=== PATIENT | female | born 1960 | race Caucasian/White ===

== ENCOUNTER 2016-11-03 07:26 | Emergency (ER) | payer OTHER ==
--- NOTE | 2016-11-03 08:33 | RADIOLOGY REPORT (SQ) ---
EXAM DESCRIPTION: FOOT RIGHT COMPLETE COMPLETED DATE/TIME: 11/03/2016 8:09 am REASON FOR STUDY: dropped sheet of plywood on top of foot COMPARISON: None. NUMBER OF VIEWS: Three views. TECHNIQUE: AP, lateral and oblique radiographic images acquired of the right foot. LIMITATIONS: None. FINDINGS: MINERALIZATION: Normal. BONES: No acute fracture or dislocation. No worrisome bone lesions. Mild hallux valgus. JOINTS: No effusions. SOFT TISSUES: Mild soft tissue swelling over the forefoot dorsum. No radiopaque foreign body. OTHER: No other significant finding. IMPRESSION: No acute fracture or dislocation identified. Mild soft tissue swelling over the dorsum of the forefoot. TECHNICAL DOCUMENTATION: JOB ID: [id number] [employer]- All Rights Reserved
--- NOTE | 2016-11-03 09:00 | ER Document Report ---
ED General - General Chief Complaint: Foot Injury Stated Complaint: FOOT INJURY Time Seen by Provider: 11/03/16 08:01 Mode of Arrival: Ambulatory Information source: Patient Notes: 36-year-old female presents with complaints of right foot pain after a piece of wood fell on it yesterday. Patient denies any other injuries patient is able to ambulate TRAVEL OUTSIDE OF THE [place] IN LAST 30 DAYS: No - HPI Onset: Yesterday Onset/Duration: Sudden Quality of pain: Achy Severity: Mild Pain Level: 1 Associated symptoms: Body/muscle aches Exacerbated by: Movement Relieved by: Denies Similar symptoms previously: No Recently seen / treated by doctor: No - Related Data Allergies/Adverse Reactions: ampicillin [Ampicillin] Allergy (Unknown, Verified 11/03/16 07:26) codeine [Codeine] Allergy (Unknown, Verified 11/03/16 07:26) Past Medical History - Social History Smoking Status: Never Smoker Cigarette use (# per day): No Chew tobacco use (# tins/day): No Smoking Education Provided: No Family History: CAD - Father at age 45, [place] at 65, Hyperlipidemia, Hypertension, Other - Migraine Patient has suicidal ideation: No Patient has homicidal ideation: No Neurological Medical History: Reports: Hx Migraine Renal/ Medical History: Reports: Hx Ectopic , Hx Ovarian Cysts. Denies: Hx Peritoneal Dialysis Past Surgical History: Reports: Hx Hysterectomy, Hx Orthopedic Surgery - knee, Hx Tubal Ligation, Hx Urinary Tract Surgery - Bladder sling - Immunizations Immunizations up to date: Yes Hx Diphtheria, Pertussis, Tetanus Vaccination: Yes Review of Systems - Review of Systems Notes: REVIEW OF SYSTEMS: CONSTITUTIONAL : Denies fever, chills, or sweats. Denies recent illness. EENT: Denies eye, ear, throat, or mouth pain or symptoms. Denies nasal or sinus congestion or discharge. Denies throat, tongue, or mouth swelling or difficulty swallowing. CARDIOVASCULAR: Denies chest pain. Denies palpitations or racing or irregular heart beat. Denies ankle edema. RESPIRATORY: Denies cough, cold, or chest congestion. Denies shortness of breath, difficulty breathing, or wheezing. GASTROINTESTINAL: Denies abdominal pain or distention. Denies nausea, vomiting , or diarrhea. Denies blood in vomitus, stools, or per rectum. Denies black, tarry stools. Denies constipation. GENITOURINARY: Denies difficulty urinating, painful urination, burning, frequency, blood in urine, or discharge. FEMALE GENITOURINARY: Denies vaginal bleeding, heavy or abnormal periods, irregular periods. Denies vaginal discharge or odor. MUSCULOSKELETAL: Admits to right foot pain SKIN: Denies rash, lesions or sores. HEMATOLOGIC : Denies easy bruising or bleeding. LYMPHATIC: Denies swollen, enlarged glands. NEUROLOGICAL: Denies confusion or altered mental status. Denies passing out or loss of consciousness. Denies dizziness or lightheadedness. Denies headache. Denies weakness or paralysis or loss of use of either side. Denies problems with gait or speech. Denies sensory loss, numbness, or tingling. Denies seizures. PSYCHIATRIC: Denies anxiety or stress. Denies depression, suicidal ideation, or homicidal ideation. ALL OTHER SYSTEMS REVIEWED AND NEGATIVE. PHYSICAL EXAMINATION: GENERAL: Well-appearing, well-nourished and in no acute distress. HEAD: Atraumatic, normocephalic. EYES: Pupils equal round and reactive to light, extraocular movements intact, conjunctiva are normal. ENT: Nares patent, oropharynx clear without exudates. Moist mucous membranes. NECK: Normal range of motion, supple without lymphadenopathy LUNGS: Breath sounds clear to auscultation bilaterally and equal. No wheezes rales or rhonchi. HEART: Regular rate and rhythm without murmurs ABDOMEN: Soft, nontender, nondistended abdomen. No guarding, no rebound. No masses appreciated. Female : deferred Musculoskeletal: Normal range of motion, no pitting or edema. No cyanosis. NEUROLOGICAL: Cranial nerves grossly intact. Normal speech, normal gait. Normal sensory, motor exams PSYCH: Normal mood, normal affect. SKIN: Contusion of the right dorsal aspect of the foot with mild edema without any obvious deformity pulses intact sensation intact Dictation was performed using [employer] voice recognition software Physical Exam - Vital signs Vitals: Temp Pulse Resp BP Pulse Ox 97.7 F 90 20 131/71 H 96 11/03/16 07:29 11/03/16 07:29 11/03/16 07:29 11/03/16 07:29 11/03/16 07:29 Course - Re-evaluation Re-evalutation: 11/03/16 14:14 X-ray noted no acute abnormality, except for soft tissue edema. Patient otherwise well-appearing no distress After performing a Medical Screening Examination, I estimate there is LOW risk for INTRACRANIAL HEMORRHAGE, UNSTABLE SPINE FRACTURE, CENTRAL CORD SYNDROME, CAUDA EQUINA, THORACIC AORTIC DISSECTION, PNEUMOTHORAX, PERFORATED BOWEL, RUPTURED ABDOMINAL AORTIC ANEURYSM, ACUTE TENDON RUPTURE, COMPARTMENT SYNDROME, or OPEN FRACTURE, thus I consider the discharge disposition reasonable. Also, there is no evidence or peritonitis, sepsis, or toxicity. I have reevaluated this patient multiple times and no significant life threatening changes are noted. The patient and I have discussed the diagnosis and risks, and we agree with discharging home to follow-up with their primary doctor with the understanding that symptoms and presentations can change. We also discussed returning to the Emergency Department immediately if new or worsening symptoms occur. We have discussed the symptoms which are most concerning (e.g., bloody stool, fever, changing or worsening pain, vomiting) that necessitate immediate return. - Vital Signs Vital signs: Temp Pulse Resp BP Pulse Ox 97.9 F 84 18 129/78 H 98 11/03/16 09:15 11/03/16 09:15 11/03/16 09:15 11/03/16 09:15 11/03/16 09:15 - Diagnostic Test Radiology reviewed: Image reviewed, Reports reviewed - No acute fracture report given to patient Discharge - Discharge Clinical Impression: Contusion of bone, Foot pain, right Condition: Stable Disposition: HOME, SELF-CARE Instructions: Contusion ([facility]) Additional Instructions: Please allow for light duty and limited walking due to foot injury for 5 days Prescriptions: Naproxen 500 mg PO BID #20 tablet Forms: Return to Work Referrals: MENDEL ELIZABETH MD [Primary Care Provider] - Follow up in 3-5 days
[2016-11-03 09:16] VITALS: BP 129/78
== END 2016-11-03 09:17 | disposition home or self-care (01) ==
LOC: ER 07:26
DX: S90.30XA Contusion of unspecified foot, initial encounter (principal); M79.671 Pain in right foot; W20.8XXA Other cause of strike by thrown, projected or falling object, initial encounter; Y92.009 Unspecified place in unspecified non-institutional (private) residence as the place of occurrence of the external cause; Z88.0 Allergy status to penicillin; Z88.5 Allergy status to narcotic agent
CPT/HCPCS: 99283

== ENCOUNTER 2017-06-12 08:49 | Emergency (ER) | payer OTHER ==
[2017-06-12] MEDS ORDERED: DIPHENHYDRAMINE HCL 50 MG/ML VIAL IV ONE (09:18)
[2017-06-12] MEDS ORDERED: PROCHLORPERAZINE EDISYLATE INJ 10 MG/2 ML VIAL IV ONE (09:18)
[2017-06-12] MEDS ORDERED: NORMAL SALINE 1000 ML 1,000 ML IV ONE (09:18)
[2017-06-12] MEDS ORDERED: KETOROLAC TROMETHAMINE INJ/PF 30 MG/1 ML SDV IV ONE (09:18)
--- NOTE | 2017-06-12 09:19 | ER Document Report ---
HPI - HPI Patient complains to provider of: Persistent right-sided migraine headache Onset/Duration: Persistent Quality of pain: Throbbing Pain Level: 4 Context: 56-year-old female with a history of right-sided migraines has had this typical throbbing migraine with photosensitivity, nausea, sound sensitivity for 3 days despite taking 2 Fioricet. She usually sees Yanelis Albert of [facility]. 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 No recent illness or fever. Associated Symptoms: None Exacerbated by: Other - See above Relieved by: Denies Similar symptoms previously: Yes Recently seen / treated by doctor: No - ROS ROS below otherwise negative: Yes Systems Reviewed and Negative: Yes All other systems reviewed and negative - REPRODUCTIVE LMP: hyst Reproductive: DENIES: : Past Medical History - General Information source: Patient - Social History Smoking Status: Never Smoker Frequency of alcohol use: None Drug Abuse: None Lives with: Family Family History: CAD - Father at age 45, [place] at 65, Hyperlipidemia, Hypertension, Other - Migraine Neurological Medical History: Reports: Hx Migraine Renal/ Medical History: Reports: Hx Ectopic , Hx Ovarian Cysts. Denies: Hx Peritoneal Dialysis Past Surgical History: Reports: Hx Hysterectomy, Hx Orthopedic Surgery - knee, Hx Tubal Ligation, Hx Urinary Tract Surgery - Bladder sling - Immunizations Immunizations up to date: Yes Hx Diphtheria, Pertussis, Tetanus Vaccination: Yes Vertical Provider Document - CONSTITUTIONAL Agree With Documented VS: Yes Exam Limitations: No Limitations General Appearance: No Apparent Distress - INFECTION CONTROL TRAVEL OUTSIDE OF THE [place] IN LAST 30 DAYS: No - HEENT HEENT: Normocephalic, PERRLA. negative: Conjuctival Injection, Pharyngeal Erythema, Tympanic Membrane Red - NECK Neck: Supple - RESPIRATORY Respiratory: Breath Sounds Normal, No Respiratory Distress - CARDIOVASCULAR Cardiovascular: Regular Rate, Regular Rhythm - MUSCULOSKELETAL/EXTREMETIES Musculoskeletal/Extremeties: EDENILSON CAMPBELL - NEURO Level of Consciousness: Awake, Alert, Appropriate Motor/Sensory: No Motor Deficit, No Sensory Deficit Notes: Gait is stable - DERM Integumentary: Warm, Dry Course - Re-evaluation Re-evalutation: 06/12/17 10:40 YANG to 2, vnaessa has worked in the past, will rx for that. Discharge - Discharge Clinical Impression: Migraine headache Condition: Good Disposition: HOME, SELF-CARE Instructions: Intravenous Compazine for Headaches ([facility]), Use of Diphenhydramine , Headache ([facility]), Toradol Injection ([facility]) Additional Instructions: rest see yanelis valdez for follow up to er if recurs, worsens, change in character of the headache Prescriptions: Rizatriptan Benzoate [Maxalt] 10 mg PO ONCE PRN #30 tablet PRN Reason: For Headache Forms: Return to Work
[2017-06-12 11:02] VITALS: BP 134/78
== END 2017-06-12 11:11 | disposition home or self-care (01) ==
LOC: ER 08:49
DX: G43.909 Migraine, unspecified, not intractable, without status migrainosus (principal); R11.0 Nausea
CPT/HCPCS: 99283; 96361; 96374; 96375; J1200; J1885; J0780; J7030

== ENCOUNTER 2018-03-20 08:43 | Emergency (ER) | payer OTHER ==
[2018-03-20] MEDS ORDERED: IBUPROFEN 800 MG TABLET PO ONE (09:26)
[2018-03-20 10:20] LABS: A TYPE INFLUENZA AG NEGATIVE (NEGATIVE); B INFLUENZA AG NEGATIVE (NEGATIVE)
--- NOTE | 2018-03-20 10:39 | RADIOLOGY REPORT (SQ) ---
EXAM DESCRIPTION: CHEST 2 VIEWS COMPLETED DATE/TIME: 03/20/2018 10:00 am REASON FOR STUDY: cough fever COMPARISON: Chest films 04/09/2016, 05/30/2013 EXAM PARAMETERS: NUMBER OF VIEWS: two views TECHNIQUE: Digital Frontal and Lateral radiographic views of the chest acquired. RADIATION DOSE: NA LIMITATIONS: none FINDINGS: LUNGS AND PLEURA: No opacities, masses or pneumothorax. No pleural effusion. MEDIASTINUM AND HILAR STRUCTURES: No masses or contour abnormalities. HEART AND VASCULAR STRUCTURES: Heart normal size. No evidence for failure. BONES: No acute findings. HARDWARE: None in the chest. OTHER: No other significant finding. IMPRESSION: NO ACUTE RADIOGRAPHIC FINDING IN THE CHEST. TECHNICAL DOCUMENTATION: JOB ID: [id number] [employer]- All Rights Reserved Reading location - IP/workstation name: [email or web address]
--- NOTE | 2018-03-20 11:57 | ER Document Report ---
ED ENT - General Chief Complaint: Sore Throat Stated Complaint: HEADACHE/COUGH/SORE THROAT Time Seen by Provider: 03/20/18 09:16 Mode of Arrival: Ambulatory Information source: Patient Notes: Patient is a 57-year-old female comes emergency room complaining of severe headache cough and sore throat. Patient states it started yesterday with sinus headache and congestion. It is increased with a really bad sore throat and hurts to swallow. States she could not sleep all night because of the drainage in the in the throat pain. States that her temp measured at home was 103.0. She has had a little productive yellow cough as well. Patient's temp here in the emergency room was 99.0 she is taken Tylenol last at 2 AM vital signs showed a heart rate of 128 her sat of 95% a blood pressure of 137/46 and she states an overall feeling of malaise. Patient denies smoking. She does work at [employer]. She is around general public. Patient states she has a history of headaches which are migraine headaches this does not feel like a migraine headache although she states when she gets a normal headache that if she does not take care of her right away it turns into migraine headache. TRAVEL OUTSIDE OF THE [place] IN LAST 30 DAYS: No - HPI Patient complains to provider of: Nose problem, Throat problem Onset: Yesterday Onset/Duration: Sudden, Constant, Worse Quality of pain: Achy Severity: Moderate Pain Level: 3 Location of pain: Nose, Sinus, Throat Associated symptoms: Chills, Congestion, Cough, Difficulty swallowing, Fever, Headache, Runny nose, Sinus pain - The sick on the, Sore throat Similar symptoms previously: No Recently seen / treated by doctor: No - Related Data Allergies/Adverse Reactions: ampicillin [Ampicillin] Allergy (Unknown, Verified 03/20/18 08:45) codeine [Codeine] Allergy (Unknown, Verified 03/20/18 08:45) Past Medical History - General Information source: Patient - Social History Smoking Status: Never Smoker Cigarette use (# per day): No Chew tobacco use (# tins/day): No Smoking Education Provided: No Frequency of alcohol use: None Drug Abuse: None Family History: Reviewed & Not Pertinent, CAD - Father at age 45, [place] at 65, Hyperlipidemia, Hypertension, Other - Migraine Patient has suicidal ideation: No Patient has homicidal ideation: No Neurological Medical History: Reports: Hx Migraine Renal/ Medical History: Reports: Hx Ectopic , Hx Ovarian Cysts. Denies: Hx Peritoneal Dialysis Past Surgical History: Reports: Hx Hysterectomy, Hx Orthopedic Surgery - knee, Hx Tubal Ligation, Hx Urinary Tract Surgery - Bladder sling - Immunizations Immunizations up to date: Yes Hx Diphtheria, Pertussis, Tetanus Vaccination: Yes Review of Systems - Review of Systems Constitutional: Chills, Fever, Weakness EENT: Ear pain, Nose congestion, Sinus pressure, Sinus discharge, Throat pain, Difficulty swallowing Cardiovascular: No symptoms reported Respiratory: See HPI, Cough, Short of breath, Wheezing Gastrointestinal: No symptoms reported Genitourinary: No symptoms reported Female Genitourinary: No symptoms reported Musculoskeletal: No symptoms reported Skin: No symptoms reported Hematologic/Lymphatic: No symptoms reported Neurological/Psychological: No symptoms reported -: Yes All other systems reviewed and negative Physical Exam - Vital signs Vitals: Temp Pulse Resp BP Pulse Ox 99.0 F 128 H 24 H 137/46 H 95 03/20/18 08:53 03/20/18 08:53 03/20/18 08:53 03/20/18 08:53 03/20/18 08:53 Interpretation: Hypertensive, Tachycardic - Notes Notes: PHYSICAL EXAMINATION: GENERAL: Patient is a well-nourished well-developed 57-year-old female who is in no apparent distress but is obviously ill-appearing. HEAD: Atraumatic, normocephalic. EYES: Pupils equal round and reactive to light, extraocular movements intact, conjunctiva are normal. ENT: Examination head and upper airway showed nasal mucosa to be very erythematous and edematous with rhinorrhea noted yellowish in color. Patient displays both frontal and maxillary tenderness to palpation with the emphasis being more on the frontal. Examination of bilateral ears show the external canals have some mild cerumen but no obstruction of the TMs. External canals have no erythema at this time. Bilateral TMs are bulging with mild air-fluid levels noted. Further examination of the oral cavity shows the posterior pharynx to be moderately erythematous with bilateral tonsillar enlargement that appear angry with no exudate noted at this time. Uvula is midline there is moderate erythema there is no exudate noted there is no encroachment upon the uvula at this time. Airway is patent. NECK: Normal range of motion, supple. There is noted bilateral anterior cervical lymphadenopathy to palpation that is mildly tender. LUNGS: Auscultation of patient's lung gutierrez show she has bilateral breath sounds breath sounds are moderately decreased throughout there is no rales heard although there is some mild inspiratory expiratory wheeze. There is noted upper airway congestion on inspiration however it clears on cough. HEART: Patient has a tachycardic rate at 128 ABDOMEN: Soft, nontender, nondistended abdomen. No guarding, no rebound. No masses appreciated. Female : deferred Musculoskeletal: Normal range of motion, no pitting or edema. No cyanosis. NEUROLOGICA Normal speech, normal gait. Normal sensory, motor exams PSYCH: Normal mood, normal affect. SKIN: Warm, Dry, normal turgor, no rashes or lesions noted. Course - Re-evaluation Re-evalutation: 03/20/18 12:01 As stated H&P patient did appear ill. She appears uncomfortable and she has multitude of findings that are suggestive of multiple different things that is why we tested her for the strep and the influenza and the mono. Her chest x- ray did not show any acute findings either. All of this started yesterday so any 1 of the above could still be of the culprit and we would not know. I have explained this to the patient and informed her that I would be treating her for pharyngitis and placed on antibiotic for that because it was her biggest concern and there is a lot of strep going around. She works in the public environment. I have informed her that it also could be viral and that antibiotics will not do her any good but given that she is got the signs and symptoms of a pharyngitis that is bacterial in nature and the possibility of a early community-acquired pneumonia brewing in the background that she does not smoke. I feel it is necessary to cover the right with an antibiotic. If anyone notices her vital signs she was triaged in with a heart rate 128 and a saturation of 95%. She does not smoke and has no history of breathing problems and this is concerning. I do not believe we need to go into a full fledged lab workup with CBC at all I think we can treat her and she will be fine Y explaining this to her as well as this note. - Vital Signs Vital signs: Temp Pulse Resp BP Pulse Ox 99.0 F 116 H 24 H 137/46 H 95 03/20/18 08:53 03/20/18 09:28 03/20/18 08:53 03/20/18 08:53 03/20/18 08:53 Discharge - Discharge Clinical Impression: Bacterial upper respiratory infection Pharyngitis Qualifiers: Pharyngitis/tonsillitis etiology: unspecified etiology Qualified Code(s): J02.9 - Acute pharyngitis, unspecified Headache Qualifiers: Headache type: unspecified Headache chronicity pattern: unspecified pattern Intractability: not intractable Qualified Code(s): R51 - Headache Condition: Stable Disposition: HOME, SELF-CARE Instructions: Fever ([facility]), Sore Throat ([facility]), Upper Respiratory Illness ([facility]), Viral Syndrome ([facility]), Headache ([facility]) Additional Instructions: As we discussed your presentation is concerning for multitude of things. At this point since you had early onset as of yesterday it could be any 1 of the other things we have done but just has not had enough time to intubate you tomorrow for us to pick it up yet. Given the fact you get so many things going on in coming here with a heart rate of 128 and a O2 saturation of 95% I am concerned enough to put you on antibiotics as a safety precaution and because I do believe you have a bacterial infection. Some placing you on the Z-Zak which is Zithromax and steroids to help with the breathing as well as something to dry up the sinuses. I will also place you on a little bit of Fioricet that will aid in with a headache. Should you have any concerns or problems return to ER. Use some nasal saline to keep the nose moist and secretions thin. Try to avoid milk and dairy for the next 48 hours but drinks lots of fluids. Prescriptions: Butalb/Acetaminophen/Caffeine [Fioricet (50-325-40 mg) Tablet] 1 tab PO Q4HP PRN #12 tab PRN Reason: Azithromycin [Zithromax 250 mg Tablet] 250 mg PO ASDIR PRN #6 tablet PRN Reason: Prednisone 10 mg PO ASDIR PRN 6 Days #1 tab.ds.pk PRN Reason: Pseudoephedrine HCl [Sudafed 12 Hour] 120 mg PO BID #20 tablet.er Forms: Return to Work Referrals: MENDEL ELIZABETH MD [Primary Care Provider] - Follow up as needed
[2018-03-20 12:36] VITALS: BP 124/70
== END 2018-03-20 12:35 | disposition home or self-care (01) ==
LOC: ER 08:43
DX: J02.9 Acute pharyngitis, unspecified (principal); J06.9 Acute upper respiratory infection, unspecified; B96.89 Other specified bacterial agents as the cause of diseases classified elsewhere; J35.1 Hypertrophy of tonsils; H61.23 Impacted cerumen, bilateral; R51 Headache; R05 Cough; R53.81 Other malaise; R13.10 Dysphagia, unspecified; R50.9 Fever, unspecified; R09.89 Other specified symptoms and signs involving the circulatory and respiratory systems; J34.89 Other specified disorders of nose and nasal sinuses; R53.1 Weakness; R00.0 Tachycardia, unspecified; R09.81 Nasal congestion; H92.09 Otalgia, unspecified ear; R06.02 Shortness of breath; R06.2 Wheezing; Z86.69 Personal history of other diseases of the nervous system and sense organs; Z88.0 Allergy status to penicillin; Z88.5 Allergy status to narcotic agent
CPT/HCPCS: 36415; 71046; 86308; 87070; 87804; 87880; 99284

== ENCOUNTER 2019-06-24 11:30 | Emergency (ER) | payer OTHER ==
--- NOTE | 2019-06-24 12:29 | ER Document Report ---
ED Medical Screen (RME) - General Chief Complaint: Rash Stated Complaint: RASH,COUGH,FEVER Time Seen by Provider: 06/24/19 12:23 Primary Care Provider: MENDEL ELIZABETH MD [Primary Care Provider] - Follow up as needed Mode of Arrival: Ambulatory Information source: Patient Notes: 58-year-old female presented to ED for complaint of being sick for 2 months. She states on the May 23 she went into a doctor and was treated for URI with doxycycline and steroids and inhalers. She states she got a UTI from the doxycycline stop the doxycycline and was treated with Cipro Symbicort cortisone for 2 days. She states she then developed a temperature of 102.5 so she stopped all the second set of antibiotics and everything of she was taken she had the fever lasted for 3 days. She states now a week later she is developed a rash all over her abdomen chest neck with a severe headache. She states she just wants to know what is going on and why she is sick for this long. She is alert oriented respirations regular nonlabored. She states she does not smoke or use any illicit drugs she does have a history of kidney infections and she drinks socially. She has had a bilateral tubal location hysterectomy 2 knee surgeries for lung meniscus and a bladder sling. I have greeted and performed a rapid initial assessment of this patient. A comprehensive ED assessment and evaluation of the patient, analysis of test results and completion of medical decision making process will be conducted by an additional ED providers. TRAVEL OUTSIDE OF THE [place] IN LAST 30 DAYS: No - Related Data Allergies/Adverse Reactions: ampicillin [Ampicillin] Allergy (Unknown, Verified 06/24/19 12:23) codeine [Codeine] Allergy (Unknown, Verified 06/24/19 12:23) Past Medical History - Past Medical History Cardiac Medical History: Reports: None Pulmonary Medical History: Reports: Hx Bronchitis EENT Medical History: Reports: None Neurological Medical History: Reports: Hx Migraine Renal/ Medical History: Reports: Hx Ectopic , Hx Ovarian Cysts Malignancy Medical History: Reports: None GI Medical History: Reports: None Musculoskeltal Medical History: Reports Hx Musculoskeletal Trauma Skin Medical History: Reports None Psychiatric Medical History: Reports: None Traumatic Medical History: Reports: None Infectious Medical History: Reports: None Past Surgical History: Reports: Hx Hysterectomy, Hx Orthopedic Surgery - knee, Hx Tubal Ligation, Hx Urinary Tract Surgery - Bladder sling - Immunizations Immunizations up to date: Yes Hx Diphtheria, Pertussis, Tetanus Vaccination: Yes Physical Exam - Vital signs Vitals: Temp Pulse Resp BP Pulse Ox 97.9 F 84 17 127/63 H 97 06/24/19 11:45 06/24/19 11:45 06/24/19 11:45 06/24/19 11:45 06/24/19 11:45 Course - Vital Signs Vital signs: Temp Pulse Resp BP Pulse Ox 97.9 F 84 17 127/63 H 97 06/24/19 11:45 06/24/19 11:45 06/24/19 11:45 06/24/19 11:45 06/24/19 11:45 Doctor's Discharge - Discharge Referrals: MENDEL ELIZABETH MD [Primary Care Provider] - Follow up as needed
[2019-06-24 12:54] LABS: ABSOLUTE BASOPHILS # (AUTO) 0.1 10^3/uL (0.0-0.2); ABSOLUTE EOSINOPHILS # (AUTO) 0.9 10^3/uL (0.0-0.6); ABSOLUTE LYMPHOCYTES (AUTO) 2.1 10^3/uL (0.5-4.7); ABSOLUTE MONOCYTES (AUTO) 0.5 10^3/uL (0.1-1.4); ABSOLUTE NEUT (AUTO) 4.7 10^3/uL (1.7-8.2); BASOPHILS % (AUTO) 1.1 % (0-2); HEMATOCRIT 45.3 % (36.0-47.0); HEMOGLOBIN 15.1 g/dL (12.0-15.5); LYMPHOCYTES % (AUTO) 24.9 % (13-45); MEAN CORPUSCULAR HEMOGLOBIN 31.2 pg (27.0-33.4); MEAN CORPUSCULAR HGB CONC 33.3 g/dL (32.0-36.0); MEAN CORPUSCULAR VOLUME 94 fl (80-97); MONOCYTES % (AUTO) 6.4 % (3-13); PLATELET COUNT 344 10^3/uL (150-450); RED BLOOD COUNT 4.83 10^6/uL (3.72-5.28); RED CELL DISTRIBUTION WIDTH 13.8 % (11.5-14.0); SEGMENTED NEUTROPHILS % (AUTO) 56.6 % (42-78); TOTAL CELLS COUNTED % (AUTO) 100 %; WHITE BLOOD COUNT 8.3 10^3/uL (4.0-10.5)
[2019-06-24 12:57] LABS: APPEARANCE,URINE CLEAR; BILIRUBIN,URINE NEGATIVE (NEGATIVE); COLOR,URINE YELLOW; GLUCOSE, URINE NEGATIVE (NEGATIVE); KETONES,URINE NEGATIVE (NEGATIVE); PROTEIN,URINE NEGATIVE (NEGATIVE); UROBILINOGEN,URINE NEGATIVE mg/dL (<2.0)
[2019-06-24 13:11] LABS: ALBUMIN 4.3 g/dL (3.5-5.0); ALKALINE PHOSPHATASE 87 U/L (38-126); ANION GAP 6 (5-19); ASPARTATE AMINO TRANSFERASE 42 U/L (14-36); BILIRUBIN,TOTAL 0.4 mg/dL (0.2-1.3); BLOOD UREA NITROGEN 19 mg/dL (7-20); CALCIUM 9.5 mg/dL (8.4-10.2); CARBON DIOXIDE 28 mmol/L (22-30); CHLORIDE 107 mmol/L (98-107); GLUCOSE 94 mg/dL (75-110); POTASSIUM 4.5 mmol/L (3.6-5.0); TOTAL PROTEIN 7.1 g/dL (6.3-8.2)
--- NOTE | 2019-06-24 14:09 | RADIOLOGY REPORT (SQ) ---
EXAM DESCRIPTION: CHEST 2 VIEWS COMPLETED DATE/TIME: 06/24/2019 1:49 pm REASON FOR STUDY: cough/sob COMPARISON: PA and lateral views of the chest from 03/20/2018. EXAM PARAMETERS: NUMBER OF VIEWS: Two views. TECHNIQUE: PA and lateral views of the chest were obtained. RADIATION DOSE: NA LIMITATIONS: none FINDINGS: LUNGS AND PLEURA: No consolidation, pleural effusion or pneumothorax. MEDIASTINUM AND HILAR STRUCTURES: No mediastinal or hilar contour abnormality. HEART AND VASCULAR STRUCTURES: The cardiac silhouette and pulmonary vasculature are within normal blank its. BONES: No acute findings. HARDWARE: None in the chest. OTHER: No other finding. IMPRESSION: No acute cardiopulmonary process. TECHNICAL DOCUMENTATION: JOB ID: [id number] 2010 [employer]- All Rights Reserved Reading location - IP/workstation name: [email or web address]
--- NOTE | 2019-06-24 14:37 | ER Document Report ---
ED General - General Chief Complaint: Cough Stated Complaint: RASH,COUGH,FEVER Time Seen by Provider: 06/24/19 12:23 Primary Care Provider: MENDEL ELIZABETH MD [EMERITUS] - Follow up as needed Mode of Arrival: Ambulatory Information source: Patient TRAVEL OUTSIDE OF THE [place] IN LAST 30 DAYS: No - HPI Notes: Patient presents with complaints of 2 months of intermittent cough congestion sinus pain headaches body aches and generalized malaise. She states she has had 2 different rounds of antibiotics but has not completed either 1. These were doxycycline and Cipro. She is also been using an inhaler that helps somewhat. She also has been on 1 dose of steroids. Patient states that the cough is nonproductive. She states she is also had to use Diflucan 1 time as she received a yeast infection from the previous rounds of antibiotics. She states that her symptoms are intermittent. Nothing makes it better or worse. They do radiate throughout her body. They are mild to moderate in intensity. - Related Data Allergies/Adverse Reactions: ampicillin [Ampicillin] Allergy (Unknown, Verified 06/24/19 12:23) codeine [Codeine] Allergy (Unknown, Verified 06/24/19 12:23) Home Medications: denies Past Medical History - General Information source: Patient - Social History Smoking Status: Never Smoker Chew tobacco use (# tins/day): No Frequency of alcohol use: Social Drug Abuse: None Family History: Reviewed & Not Pertinent, CAD - Father at age 45, [place] at 65, Hyperlipidemia, Hypertension, Other - Migraine Patient has suicidal ideation: No Patient has homicidal ideation: No - Past Medical History Cardiac Medical History: Reports: None Pulmonary Medical History: Reports: Hx Bronchitis EENT Medical History: Reports: None Neurological Medical History: Reports: Hx Migraine Renal/ Medical History: Reports: Hx Ectopic , Hx Ovarian Cysts Malignancy Medical History: Reports: None GI Medical History: Reports: None Musculoskeletal Medical History: Reports Hx Musculoskeletal Trauma Skin Medical History: Reports None Psychiatric Medical History: Reports: None Traumatic Medical History: Reports: None Infectious Medical History: Reports: None Past Surgical History: Reports: Hx Hysterectomy, Hx Orthopedic Surgery - knee, Hx Tubal Ligation, Hx Urinary Tract Surgery - Bladder sling - Immunizations Immunizations up to date: Yes Hx Diphtheria, Pertussis, Tetanus Vaccination: Yes Review of Systems - Review of Systems Constitutional: denies: Chills, Fever Cardiovascular: denies: Chest pain, Palpitations Respiratory: denies: Cough, Short of breath -: Yes All other systems reviewed and negative Physical Exam - Vital signs Vitals: Temp Pulse Resp BP Pulse Ox 97.9 F 84 17 127/63 H 97 06/24/19 11:45 06/24/19 11:45 06/24/19 11:45 06/24/19 11:45 06/24/19 11:45 Interpretation: Normal - General General appearance: Appears well, Alert - HEENT Head: Normocephalic, Atraumatic Eyes: Normal Pupils: PERRL - Respiratory Respiratory status: No respiratory distress Chest status: Nontender Breath sounds: Wheezing - Mild expiratory basis Chest palpation: Normal - Cardiovascular Rhythm: Regular Heart sounds: Normal auscultation Murmur: No - Abdominal Inspection: Normal Distension: No distension Bowel sounds: Normal Tenderness: Nontender Organomegaly: No organomegaly - Back Back: Normal, Nontender - Extremities General upper extremity: Normal inspection, Nontender, Normal color, Normal ROM, Normal temperature General lower extremity: Normal inspection, Nontender, Normal color, Normal ROM, Normal temperature, Normal weight bearing. No: Lyndon's sign - Neurological Neuro grossly intact: Yes Cognition: Normal Orientation: AAOx4 Ryan Coma Scale Eye Opening: Spontaneous Ryan Coma Scale Verbal: Oriented [place] Coma Scale Motor: Obeys Commands [place] Coma Scale Total: 15 Speech: Normal Motor strength normal: LUE, RUE, LLE, RLE Sensory: Normal - Psychological Associated symptoms: Normal affect, Normal mood - Skin Skin Temperature: Warm Skin Moisture: Dry Skin Color: Normal Course - Vital Signs Vital signs: Temp Pulse Resp BP Pulse Ox 97.9 F 84 17 127/63 H 97 06/24/19 11:45 06/24/19 11:45 06/24/19 11:45 06/24/19 11:45 06/24/19 11:45 - Laboratory Result Diagrams: 06/24/19 12:41 06/24/19 12:41 Laboratory results interpreted by me: 06/24/19 06/24/19 12:41 12:41 Eos % (Auto) 11.0 H Absolute Eos (auto) 0.9 H AST 42 H ALT 47 H - Diagnostic Test Radiology reviewed: Image reviewed, Reports reviewed Discharge - Discharge Clinical Impression: URI (upper respiratory infection) Qualifiers: URI type: unspecified URI Qualified Code(s): J06.9 - Acute upper respiratory infection, unspecified Condition: Stable Disposition: HOME, SELF-CARE Instructions: Upper Respiratory Illness ([facility]) Additional Instructions: use Eucerin cream on rash Prescriptions: Cefdinir 300 mg PO BID 7 Days #14 capsule Fluconazole [Diflucan] 100 mg PO DAILY 1 Days #1 tablet Butalb/Acetaminophen/Caffeine [Fioricet (50-325-40 mg) Tablet] 1 tab PO Q6 3 Days #12 tab Referrals: MENDEL ELIZABETH MD [EMERITUS] - Follow up in 1 week
[2019-06-24 15:06] VITALS: BP 129/80
== END 2019-06-24 15:00 | disposition home or self-care (01) ==
LOC: ER 11:30
DX: J06.9 Acute upper respiratory infection, unspecified (principal); R05 Cough; J34.89 Other specified disorders of nose and nasal sinuses; R51 Headache; R53.81 Other malaise; R06.02 Shortness of breath; R06.2 Wheezing; Z88.0 Allergy status to penicillin; Z88.6 Allergy status to analgesic agent; Z88.5 Allergy status to narcotic agent
CPT/HCPCS: 36415; 71046; 80053; 81001; 85025; 87070; 87880; 99283

== ENCOUNTER 2019-07-02 14:33 | Emergency (ER) | payer OTHER ==
[2019-07-02] MEDS ORDERED: LORATADINE 10 MG TABLET PO ONE (15:11)
[2019-07-02] MEDS ORDERED: GUAIFENESIN 600 MG TABLET.SA PO ONE (15:11)
--- NOTE | 2019-07-02 15:16 | ER Document Report ---
ED Respiratory Problem - General Chief Complaint: Cold Symptoms Stated Complaint: COUGH/SORE THROAT/HEADACHE/VOMITING Time Seen by Provider: 07/02/19 15:10 Primary Care Provider: DAVID PATEL DO [Primary Care Provider] - Follow up in 3-5 days Mode of Arrival: Ambulatory Information source: Patient Notes: 58-year-old female presents to ED for complaint of cough congestion shortness of breath no fever. She states she was diagnosed with flu 3 weeks ago and last week was upper respiratory infection and she continues to cough. She states last year she was diagnosed with bronchitis. Otherwise only medical history is a tubal that was removed hysterectomy and bladder sling and 2 knee surgeries for meniscus tears. Patient is alert oriented respirations regular nonlabored speaking in full sentences. TRAVEL OUTSIDE OF THE [place] IN LAST 30 DAYS: No - HPI Patient complains to provider of: Cough Onset: Other - 3 weeks Duration: Continuous Initiating Event: URI Quality of pain: Achy Severity: Moderate Pain Level: 2 Cough: Productive Sputum amount: Small Sputum color: Green Associated symptoms: Congestion, Cough, PND, Runny nose. denies: Fever Similar symptoms previously: Yes Recently seen / treated by doctor: Yes - Related Data Allergies/Adverse Reactions: ampicillin [Ampicillin] Allergy (Unknown, Verified 06/24/19 12:23) codeine [Codeine] Allergy (Unknown, Verified 06/24/19 12:23) Past Medical History - General Information source: Patient - Social History Smoking Status: Never Smoker Frequency of alcohol use: Social Drug Abuse: None Lives with: Family Family History: Reviewed & Not Pertinent, CAD - Father at age 45, [place] at 65, Hyperlipidemia, Hypertension, Other - Migraine Patient has suicidal ideation: No Patient has homicidal ideation: No - Past Medical History Cardiac Medical History: Reports: None Pulmonary Medical History: Reports: Hx Bronchitis EENT Medical History: Reports: None Neurological Medical History: Reports: Hx Migraine Renal/ Medical History: Reports: Hx Ectopic , Hx Ovarian Cysts Malignancy Medical History: Reports: None GI Medical History: Reports: None Musculoskeletal Medical History: Reports Hx Musculoskeletal Trauma Skin Medical History: Reports None Psychiatric Medical History: Reports: None Traumatic Medical History: Reports: None Infectious Medical History: Reports: None Past Surgical History: Reports: Hx Genitourinary Surgery - Bladder sling, Hx Gynecologic Surgery - Ectopic removal, Hx Hysterectomy, Hx Orthopedic Surgery - knee two meniscus repair, Hx Tubal Ligation, Hx Urinary Tract Surgery - Bladder sling - Immunizations Immunizations up to date: Yes Hx Diphtheria, Pertussis, Tetanus Vaccination: Yes Review of Systems - Review of Systems Constitutional: Recent illness. denies: Fever EENT: Sinus discharge Cardiovascular: No symptoms reported Respiratory: Cough, Sputum Gastrointestinal: No symptoms reported Genitourinary: No symptoms reported Female Genitourinary: No symptoms reported Musculoskeletal: No symptoms reported Skin: No symptoms reported Hematologic/Lymphatic: No symptoms reported Neurological/Psychological: No symptoms reported -: Yes All other systems reviewed and negative Physical Exam - Vital signs Vitals: Temp Pulse Resp BP Pulse Ox 98.1 F 107 H 18 135/73 H 94 07/02/19 14:39 07/02/19 14:39 07/02/19 14:39 07/02/19 14:39 07/02/19 14:39 Interpretation: Normal - General General appearance: Appears well, Alert - HEENT Head: Normocephalic, Atraumatic Eyes: Normal Pupils: PERRL Ears: Normal External canal: Normal Tympanic membrane: Normal Sinus: Normal Nasal: Purulent discharge, Swelling Mucous membranes: Normal Pharynx: Post nasal drainage Neck: Normal - Respiratory Respiratory status: No respiratory distress Chest status: Nontender Breath sounds: Productive cough. No: Rales, Rhonchi, Stridor, Wheezing Chest palpation: Normal - Cardiovascular Rhythm: Regular Heart sounds: Normal auscultation Murmur: No - Abdominal Inspection: Normal Distension: No distension Bowel sounds: Normal Tenderness: Nontender Organomegaly: No organomegaly - Back Back: Normal, Nontender - Extremities General upper extremity: Normal inspection, Nontender, Normal color, Normal ROM, Normal temperature General lower extremity: Normal inspection, Nontender, Normal color, Normal ROM, Normal temperature, Normal weight bearing. No: Lyndon's sign - Neurological Neuro grossly intact: Yes Cognition: Normal Orientation: AAOx4 [place] Coma Scale Eye Opening: Spontaneous [place] Coma Scale Verbal: Oriented [place] Coma Scale Motor: Obeys Commands [place] Coma Scale Total: 15 Speech: Normal Motor strength normal: LUE, RUE, LLE, RLE Sensory: Normal - Psychological Associated symptoms: Normal affect, Normal mood - Skin Skin Temperature: Warm Skin Moisture: Dry Skin Color: Normal Course - Re-evaluation Re-evalutation: 07/03/19 01:41 Chest x-ray was discussed discussed with patient written report of x-ray given to patient. At time of discharge her O2 sat was 94 she did have a very minimal wheeze and a albuterol nebulizer was given. She states she does have albuterol at home. O2 sat was much better after the nebulizer and patient was discharged home with instructions to follow-up with her primary care. Patient verbalized understanding and agreement with treatment plan and patient was discharged home. - Vital Signs Vital signs: Temp Pulse Resp BP Pulse Ox 98.1 F 102 H 16 157/64 H 97 07/02/19 16:27 07/02/19 16:27 07/02/19 16:27 07/02/19 16:27 07/02/19 16:52 - Diagnostic Test Radiology reviewed: Image reviewed, Reports reviewed Discharge - Discharge Clinical Impression: Viral bronchitis Condition: Stable Disposition: HOME, SELF-CARE Additional Instructions: Bronchitis You have acute bronchitis. This disease is an infection or inflammation of the air passageways in your lungs. Symptoms usually include cough, low grade fever, shortness of breath, and wheezing. The cough usually persists for a couple of weeks. Most cases of bronchitis get better without antibiotics. We prescribe antibiotics when we believe bacteria are damaging your airways, or if there's high risk the bronchitis will worsen into pneumonia. Increase your fluid intake. A cool mist humidifier may make your lungs more comfortable. An expectorant (cough medicine that loosens phlegm) can help. If you smoke, STOP!!! Recovery from bronchitis can be somewhat slow, but you should see improvement within a day or two. Repeated episodes of bronchitis may result in lung damage -- for example, chronic bronchitis, recurrent pneumonias, or emphysema. Call the doctor if you develop increasing fever, shortness of breath, chest pain, bloody sputum, or otherwise worsen. If you have not improved at all after several days, contact the physician. You have been recommended treatment with Claritin 10 mg and Mucinex 600 mg. These are all [id number] medications for cough cold congestion. You do need to call the go to the pharmacist to get the Sudafed from behind the counter please get a little red pills they are more effective. You could also use Flonase which is [id number] 1 spray each nostril twice a day. You could also use salt soda solution gargles. These will help to remove the drainage from the back your throat. Chloraseptic spray was [id number] that will also help with your sore throat. Salt and soda solution gargle 1 quart of water 1 tablespoon of salt 1 teaspoon of baking soda Mixed 3 ingredients together and boil for 1 minute Placed in a covered quart jar Use 1/2 ounce of cold solution to gargle 3 times a day FOLLOW-UP CARE: If you have been referred to a physician for follow-up care, call the physicians office for an appointment as you were instructed or within the next two days. If you experience worsening or a significant change in your symptoms, notify the physician immediately or return to the Emergency Department at any time for re-evaluation. Referrals: DAVID PATEL, DO [Primary Care Provider] - Follow up in 3-5 days
--- NOTE | 2019-07-02 16:09 | RADIOLOGY REPORT (SQ) ---
EXAM DESCRIPTION: CHEST 2 VIEWS COMPLETED DATE/TIME: 07/02/2019 3:29 pm REASON FOR STUDY: Cough and congestion COMPARISON: 06/24/2019 TECHNIQUE: Frontal and lateral radiographic views of the chest acquired. NUMBER OF VIEWS: Two view. LIMITATIONS: None. FINDINGS: LUNGS AND PLEURA: No pneumothorax. Bronchial wall thickening. No consolidation or pleura l effusion. MEDIASTINUM AND HILAR STRUCTURES: Stable. HEART AND VASCULAR STRUCTURES: Stable. BONES: No acute findings. HARDWARE: None in the chest. OTHER: No other significant finding. IMPRESSION: Bronchitis. No consolidation or pleural effusion. TECHNICAL DOCUMENTATION: JOB ID: [id number] [id number] 2010 [employer]- All Rights Reserved Reading location - IP/workstation name: [email or web address]
[2019-07-02 16:28] VITALS: BP 157/64
[2019-07-02] MEDS ORDERED: ALBUTEROL SULFATE 0.083% NEB 2.5 MG/3 ML AMPUL NEB ONE (16:36)
== END 2019-07-02 16:53 | disposition home or self-care (01) ==
LOC: ER 14:33
DX: J20.8 Acute bronchitis due to other specified organisms (principal); R51 Headache; R11.10 Vomiting, unspecified; Z88.0 Allergy status to penicillin; Z88.6 Allergy status to analgesic agent; Z90.710 Acquired absence of both cervix and uterus
CPT/HCPCS: 71046; 94640; 99283

== ENCOUNTER 2020-01-23 17:10 | Emergency (ER) | payer OTHER ==
--- NOTE | 2020-01-23 17:47 | ER Document Report ---
ED Medical Screen (RME) - General Chief Complaint: Cough Stated Complaint: CHILLS/FEVER,SOB/COUGH Time Seen by Provider: 01/23/20 17:43 Primary Care Provider: DAVID PATEL DO [Primary Care Provider] - Follow up as needed Mode of Arrival: Ambulatory Information source: Patient Notes: 59-year-old female presents to ED for cough congestion. She states she coughed last night until she vomited. She states she is got a rattle in her chest. She states she has had diarrhea x4 5 days. She states her temperatures been around 99 to to 99 8 but has not gone over 100. States she does not smoke she does drink a couple times a week but does not use any illicit drugs. She states she did do a FaceTime visit and they told her she needed to come to the emergency room and get x-rays and covid test. She states she did travel to [place] about a month ago for 2 weeks. I have greeted and performed a rapid initial assessment of this patient. A comprehensive ED assessment and evaluation of the patient, analysis of test results and completion of medical decision making process will be conducted by an additional ED providers. TRAVEL OUTSIDE OF THE [place] IN LAST 30 DAYS: No - Related Data Allergies/Adverse Reactions: ampicillin [Ampicillin] Allergy (Unknown, Verified 06/24/19 12:23) codeine [Codeine] Allergy (Unknown, Verified 06/24/19 12:23) Past Medical History Pulmonary Medical History: Reports: Hx Bronchitis Neurological Medical History: Reports: Hx Migraine Renal/ Medical History: Reports: Hx Ectopic , Hx Ovarian Cysts Musculoskeltal Medical History: Reports Hx Musculoskeletal Trauma Past Surgical History: Reports: Hx Genitourinary Surgery - Bladder sling, Hx Gynecologic Surgery - Ectopic removal, Hx Hysterectomy, Hx Orthopedic Surgery - knee two meniscus repair, Hx Tubal Ligation, Hx Urinary Tract Surgery - Bladder sling - Immunizations Immunizations up to date: Yes Hx Diphtheria, Pertussis, Tetanus Vaccination: Yes Physical Exam - Vital signs Vitals: Temp Pulse Resp BP Pulse Ox 97.8 F 100 11 L 135/81 H 97 01/23/20 17:40 01/23/20 17:40 01/23/20 17:40 01/23/20 17:40 01/23/20 17:40 Course - Vital Signs Vital signs: Temp Pulse Resp BP Pulse Ox 97.8 F 100 11 L 135/81 H 97 01/23/20 17:40 01/23/20 17:40 01/23/20 17:40 01/23/20 17:40 01/23/20 17:40 Doctor's Discharge - Discharge Referrals: DAVID PATEL DO [Primary Care Provider] - Follow up as needed
[2020-01-23 18:46] LABS: ABSOLUTE BASOPHILS # (AUTO) 0.1 10^3/uL (0.0-0.2); ABSOLUTE EOSINOPHILS # (AUTO) 0.7 10^3/uL (0.0-0.6); ABSOLUTE LYMPHOCYTES (AUTO) 2.4 10^3/uL (0.5-4.7); ABSOLUTE MONOCYTES (AUTO) 0.4 10^3/uL (0.1-1.4); ABSOLUTE NEUT (AUTO) 3.4 10^3/uL (1.7-8.2); EOSINOPHILS % (AUTO) 9.9 % (0-6); HEMATOCRIT 44.3 % (36.0-47.0); MEAN CORPUSCULAR HGB CONC 33.8 g/dL (32.0-36.0); MEAN CORPUSCULAR VOLUME 95 fl (80-97); MONOCYTES % (AUTO) 5.6 % (3-13); PLATELET COUNT 248 10^3/uL (150-450); RED BLOOD COUNT 4.67 10^6/uL (3.72-5.28); RED CELL DISTRIBUTION WIDTH 13.7 % (11.5-14.0); SEGMENTED NEUTROPHILS % (AUTO) 49.5 % (42-78); TOTAL CELLS COUNTED % (AUTO) 100 %; WHITE BLOOD COUNT 6.9 10^3/uL (4.0-10.5)
--- NOTE | 2020-01-23 18:48 | RADIOLOGY REPORT (SQ) ---
EXAM DESCRIPTION: CHEST SINGLE VIEW IMAGES COMPLETED DATE/TIME: 01/23/2020 5:32 pm REASON FOR STUDY: Congestion cough until she vomited COMPARISON: 04/09/2016 EXAM PARAMETERS: NUMBER OF VIEWS: One view. TECHNIQUE: Single frontal radiographic view of the chest acquired. RADIATION DOSE: NA LIMITATIONS: None. FINDINGS: LUNGS AND PLEURA: No opacities, masses or pneumothorax. No pleural effusion. MEDIASTINUM AND HILAR STRUCTURES: No masses. Contour normal. HEART AND VASCULAR STRUCTURES: Heart normal in size. Normal vasculature. BONES: No acute findings. HARDWARE: None in the chest. OTHER: No other significant finding. IMPRESSION: NO ACUTE RADIOGRAPHIC FINDING IN THE CHEST. TECHNICAL DOCUMENTATION: JOB ID: [id number] 2010 [email or web address]- All Rights Reserved Reading location - IP/workstation name: [email or web address]
[2020-01-23] MEDS ORDERED: PREDNISONE 20 MG TABLET PO ONE (18:55)
[2020-01-23] MEDS ORDERED: IPRATROPIUM/ALBUTEROL 0.5-2.5 MG/3 ML AMPUL NEB ONE (18:55)
[2020-01-23] MEDS ORDERED: LOPERAMIDE HCL 2 MG CAPSULE PO ONE (18:55)
[2020-01-23 19:01] LABS: APPEARANCE,URINE CLEAR; BILIRUBIN,URINE NEGATIVE (NEGATIVE); COLOR,URINE YELLOW; GLUCOSE, URINE NEGATIVE (NEGATIVE); KETONES,URINE NEGATIVE (NEGATIVE); LEUKOCYTE ESTERASE,URINE NEGATIVE (NEGATIVE); NITRITE,URINE NEGATIVE (NEGATIVE); PROTEIN,URINE NEGATIVE (NEGATIVE); URINE SPECIFIC GRAVITY 1.024; UROBILINOGEN,URINE NEGATIVE mg/dL (<2.0)
[2020-01-23 19:02] LABS: ALBUMIN 4.4 g/dL (3.5-5.0); ALKALINE PHOSPHATASE 97 U/L (38-126); ANION GAP 6 (5-19); ASPARTATE AMINO TRANSFERASE 33 U/L (14-36); BILIRUBIN,DIRECT 0.3 mg/dL (0.0-0.4); BILIRUBIN,TOTAL 0.4 mg/dL (0.2-1.3); BLOOD UREA NITROGEN 18 mg/dL (7-20); CALCIUM 9.6 mg/dL (8.4-10.2); CARBON DIOXIDE 29 mmol/L (22-30); CHLORIDE 108 mmol/L (98-107); GLUCOSE 99 mg/dL (75-110); POTASSIUM 4.6 mmol/L (3.6-5.0); TOTAL PROTEIN 7.2 g/dL (6.3-8.2)
--- NOTE | 2020-01-23 19:08 | ER Document Report ---
ED Respiratory Problem - General Chief Complaint: Cough Stated Complaint: CHILLS/FEVER,SOB/COUGH Time Seen by Provider: 01/23/20 17:43 Primary Care Provider: DAVID PATEL DO [Primary Care Provider] - Follow up as needed Mode of Arrival: Ambulatory Information source: Patient Notes: Patient presents complaining of cough and congestion for the past week. Patient reports diarrhea x3 episodes today and has had diarrhea for the past 4 days. Patient reports that she coughed so hard that she started to have vomiting only after coughing. Patient does report recently returning from [place] last month. Patient denies any fever. Patient reports some wheezing and exertional shortness of breath. Patient also complains of sore throat. TRAVEL OUTSIDE OF THE [place] IN LAST 30 DAYS: No - HPI Patient complains to provider of: Cough, Short of breath Onset: Last week Quality of pain: Achy Pain Level: 1 Context: Other - History of bronchitis. denies: Smoker Associated symptoms: Congestion, Cough, Short of breath, Sore Throat, Wheezing. denies: Fever Similar symptoms previously: Yes Recently seen / treated by doctor: No - Related Data Allergies/Adverse Reactions: ampicillin [Ampicillin] Allergy (Unknown, Verified 06/24/19 12:23) codeine [Codeine] Allergy (Unknown, Verified 06/24/19 12:23) Past Medical History - General Information source: Patient - Social History Smoking Status: Never Smoker Frequency of alcohol use: Occasional Drug Abuse: None Occupation: [employer] Family History: Reviewed & Not Pertinent, CAD - Father at age 45, [place] at 65, Hyperlipidemia, Hypertension, Other - Migraine Pulmonary Medical History: Reports: Hx Bronchitis Neurological Medical History: Reports: Hx Migraine Renal/ Medical History: Reports: Hx Ectopic , Hx Ovarian Cysts Musculoskeletal Medical History: Reports Hx Musculoskeletal Trauma Past Surgical History: Reports: Hx Genitourinary Surgery - Bladder sling, Hx Gynecologic Surgery - Ectopic removal, Hx Hysterectomy, Hx Orthopedic Surgery - knee two meniscus repair, Hx Tubal Ligation, Hx Urinary Tract Surgery - Bladder sling - Immunizations Immunizations up to date: Yes Hx Diphtheria, Pertussis, Tetanus Vaccination: Yes Review of Systems - Review of Systems Constitutional: No symptoms reported. denies: Fever EENT: Throat pain Cardiovascular: No symptoms reported Respiratory: Cough, Short of breath, Wheezing Gastrointestinal: Nausea, Vomiting - After coughing. denies: Abdominal pain Genitourinary: No symptoms reported Female Genitourinary: No symptoms reported Musculoskeletal: No symptoms reported Skin: No symptoms reported Hematologic/Lymphatic: No symptoms reported Neurological/Psychological: No symptoms reported Physical Exam - Vital signs Vitals: Temp Pulse Resp BP Pulse Ox 97.8 F 100 11 L 135/81 H 97 01/23/20 17:40 01/23/20 17:40 01/23/20 17:40 01/23/20 17:40 01/23/20 17:40 - General General appearance: Appears well, Alert In distress: None - HEENT Head: Normocephalic, Atraumatic Eyes: Normal Conjunctiva: Normal External canal: Normal Tympanic membrane: Normal Nasal: Clear rhinorrhea Mouth/Lips: Normal Mucous membranes: Normal Pharynx: Erythema. No: Tonsillar hypertrophy, Potential airway comprom. Neck: Normal, Supple. No: Lymphadenopathy, Meningismus - Respiratory Respiratory status: No respiratory distress Chest status: Pain with cough Breath sounds: Nonproductive cough, Wheezing Chest palpation: Normal - Cardiovascular Rhythm: Regular Heart sounds: S1 appreciated, S2 appreciated - Abdominal Inspection: Normal Tenderness: Nontender - Back Back: Normal, Nontender. No: CVA tenderness - Extremities General upper extremity: Normal inspection, Normal strength General lower extremity: Normal inspection, Normal strength - Neurological Neuro grossly intact: Yes Cognition: Normal Ryan Coma Scale Eye Opening: Spontaneous [place] Coma Scale Verbal: Oriented Ryan Coma Scale Motor: Obeys Commands Ryan Coma Scale Total: 15 - Psychological Associated symptoms: Normal affect, Normal mood - Skin Skin Temperature: Warm Skin Moisture: Dry Skin Color: Normal Course - Re-evaluation Re-evalutation: 01/23/20 20:59 Patient with decreased wheezing bilaterally, patient reports symptom improvement after breathing treatment. The patient was evaluated during the global Covid 19 pandemic, and that diagnosis was suspected/considered upon their initial p resentation. Their evaluation, treatment and testing was consistent with current guidelines for patients who present with complaints or symptoms that may be related to Covid 19. Patient presents with upper respiratory symptoms worrisome for possible Covid 19. Patient does not have emergency worrying symptoms such as difficulty breathing, shortness of breath, chest pain, pressure, confusion or cyanosis. Patient appears suitable for discharge as they are not of an advanced age, do not have any chronic medical conditions such as diabetes, CAD, immune deficiency, chronic lung disease or chronic kidney disease. Patient's vital signs are stable and patient is nontoxic in appearance. Good return precautions have been discussed with patient, patient verbalized understanding and is agreeable with discharge plan of care at this time. - Vital Signs Vital signs: Temp Pulse Resp BP Pulse Ox 98.2 F 81 20 137/73 H 99 01/23/20 21:39 01/23/20 21:39 01/23/20 21:39 01/23/20 21:39 01/23/20 21:39 - Laboratory Result Diagrams: 01/23/20 18:20 01/23/20 18:20 Laboratory results interpreted by me: 01/23/20 01/23/20 18:20 18:20 Eos % (Auto) 9.9 H Absolute Eos (auto) 0.7 H Chloride 108 H 01/23/20 20:59 Labs- All tests 24 hr 01/23/20 01/23/20 01/23/20 18:20 18:20 18:20 WBC 6.9 RBC 4.67 Hgb 15.0 Hct 44.3 MCV 95 MCH 32.0 MCHC 33.8 RDW 13.7 Plt Count 248 Lymph % (Auto) 34.0 [place] % (Auto) 5.6 Eos % (Auto) 9.9 H Baso % (Auto) 1.0 Absolute Neuts (auto) 3.4 Absolute Lymphs (auto) 2.4 Absolute Monos (auto) 0.4 Absolute Eos (auto) 0.7 H Absolute Basos (auto) 0.1 Seg Neutrophils % 49.5 Sodium 143.0 Potassium 4.6 Chloride 108 H Carbon Dioxide 29 Anion Gap 6 BUN 18 Creatinine 0.86 Est GFR ( Amer) > 60 Est GFR (MDRD) Non-Af > 60 Glucose 99 Calcium 9.6 Total Bilirubin 0.4 Direct Bilirubin 0.3 Neonat Total Bilirubin Not Reportable Neonat Direct Bilirubin Not Reportable Neonat Indirect Bili Not Reportable AST 33 ALT 28 Alkaline Phosphatase 97 Total Protein 7.2 Albumin 4.4 Lipase 56.1 Urine Color YELLOW Urine Appearance CLEAR Urine pH 6.0 Ur Specific [place] 1.024 Urine Protein NEGATIVE Urine Glucose (UA) NEGATIVE Urine Ketones NEGATIVE Urine Blood NEGATIVE Urine Nitrite NEGATIVE Urine Bilirubin NEGATIVE Urine Urobilinogen NEGATIVE Ur Leukocyte Esterase NEGATIVE Urine WBC (Auto) 0 Urine RBC (Auto) 1 Urine Mucus (Auto) RARE Urine Ascorbic Acid NEGATIVE Influenza A (Rapid) Influenza B (Rapid) Group A Strep Rapid 01/23/20 01/23/20 19:30 19:30 WBC RBC Hgb Hct MCV MCH MCHC RDW Plt Count Lymph % (Auto) [place] % (Auto) Eos % (Auto) Baso % (Auto) Absolute Neuts (auto) Absolute Lymphs (auto) Absolute Monos (auto) Absolute Eos (auto) Absolute Basos (auto) Seg Neutrophils % Sodium Potassium Chloride Carbon Dioxide Anion Gap BUN Creatinine Est GFR ( Amer) Est GFR (MDRD) Non-Af Glucose Calcium Total Bilirubin Direct Bilirubin Neonat Total Bilirubin Neonat Direct Bilirubin Neonat Indirect Bili AST ALT Alkaline Phosphatase Total Protein Albumin Lipase Urine Color Urine Appearance Urine pH Ur Specific [place] Urine Protein Urine Glucose (UA) Urine Ketones Urine Blood Urine Nitrite Urine Bilirubin Urine Urobilinogen Ur Leukocyte Esterase Urine WBC (Auto) Urine RBC (Auto) Urine Mucus (Auto) Urine Ascorbic Acid Influenza A (Rapid) NEGATIVE Influenza B (Rapid) NEGATIVE Group A Strep Rapid NEGATIVE - Diagnostic Test Radiology reviewed: Reports reviewed Discharge - Discharge Clinical Impression: Encounter for screening laboratory testing for COVID-19 virus, Wheezing, Sore throat Diarrhea Qualifiers: Diarrhea type: unspecified type Qualified Code(s): R19.7 - Diarrhea, unspecified Condition: Stable Disposition: HOME, SELF-CARE Instructions: COVID-19 Guidance for Persons Under Investigation, Inhaled Bronchodilators ([facility]), Steroid Medication, Viral Syndrome ([facility]) Additional Instructions: Return immediately for any new or worsening symptoms Followup with your primary care provider, call tomorrow to make a followup appointment Prescriptions: Prednisone [Deltasone 10 mg Tablet] 10 mg PO ASDIR #21 tablet Albuterol Sulfate [Proair Hfa Inhalation Aerosol 8.5 gm Mdi] 2 puff IH Q4 PRN #1 mdi PRN Reason: Albuterol Sulfate [Ventolin 0.083% Neb 2.5 mg/3 ml Ampul] 1 vial NEB Q4 PRN #30 vial PRN Reason: Forms: Return to Work Referrals: DAVID PATEL, [Primary Care Provider] - Follow up as needed
[2020-01-23 20:18] LABS: A TYPE INFLUENZA AG NEGATIVE (NEGATIVE); B INFLUENZA AG NEGATIVE (NEGATIVE)
[2020-01-23 21:41] VITALS: BP 137/73
== END 2020-01-23 21:40 | disposition home or self-care (01) ==
LOC: ER 17:10
DX: J02.9 Acute pharyngitis, unspecified (principal); R06.2 Wheezing; R19.7 Diarrhea, unspecified; R05 Cough; R06.02 Shortness of breath; Z20.828 Contact with and (suspected) exposure to other viral communicable diseases
CPT/HCPCS: 94640; 99285; 36415; 87070; 87086; 87880; 83690; 85025; 87635; 80053; 81001; 87804; 71045; J7512; C9803

== ENCOUNTER 2020-02-27 17:38 | Emergency (ER) | payer OTHER ==
[2020-02-27] MEDS ORDERED: METHYLPREDNISOLONE INJ 125 MG/2 ML SDV IV ONE (18:21)
[2020-02-27] MEDS ORDERED: ALBUTEROL SULFATE 0.083% NEB 2.5 MG/3 ML AMPUL NEB ONE (18:21)
--- NOTE | 2020-02-27 18:23 | ER Document Report ---
ED Medical Screen (RME) - General Chief Complaint: Chest Pressure Stated Complaint: DIFFICULTY BRATHING Time Seen by Provider: 02/27/20 18:11 Primary Care Provider: DAVID PATEL DO [Primary Care Provider] - Follow up as needed TRAVEL OUTSIDE OF THE [place] IN LAST 30 DAYS: No - HPI Notes: 02/27/20 18:21 59-year-old female to the emergency department with complaints of shortness of breath and chest pain that has gotten worse today. She states she has been feeling poorly for about 1 month. She states when she walks around she feels incredibly short of breath and fatigued. She states she feels like something sitting on her chest. She denies any nausea vomiting or diaphoresis. She states that she was here about a month ago and put on steroids and breathing treatments. She states she is continue to use that but without any benefit. She took a breathing treatment this morning and now feels worse. She has tachycardia here today in the emergency department and she does sound very tight with very fine expiratory wheezing. She has breathy when you are talking. Charge nurse was notified and she was taken back to bed 11. I performed a brief medical screening exam on the patient determined that the patient needs further evaluation and management by main side provider. I have placed initial orders to help expedite care. - Related Data Allergies/Adverse Reactions: ampicillin [Ampicillin] Allergy (Unknown, Verified 06/24/19 12:23) codeine [Codeine] Allergy (Unknown, Verified 06/24/19 12:23) Past Medical History Pulmonary Medical History: Reports: Hx Bronchitis Neurological Medical History: Reports: Hx Migraine Renal/ Medical History: Reports: Hx Ectopic , Hx Ovarian Cysts Musculoskeltal Medical History: Reports Hx Musculoskeletal Trauma Past Surgical History: Reports: Hx Genitourinary Surgery - Bladder sling, Hx Gynecologic Surgery - Ectopic removal, Hx Hysterectomy, Hx Orthopedic Surgery - knee two meniscus repair, Hx Tubal Ligation, Hx Urinary Tract Surgery - Bladder sling - Immunizations Immunizations up to date: Yes Hx Diphtheria, Pertussis, Tetanus Vaccination: Yes Physical Exam - Vital signs Vitals: Temp Pulse Resp BP Pulse Ox 98.2 F 119 H 22 H 131/75 H 95 02/27/20 18:13 02/27/20 18:13 02/27/20 18:13 02/27/20 18:13 02/27/20 18:13 Course - Vital Signs Vital signs: Temp Pulse Resp BP Pulse Ox 98.2 F 119 H 22 H 131/75 H 95 02/27/20 18:13 02/27/20 18:13 02/27/20 18:13 02/27/20 18:13 02/27/20 18:13 Doctor's Discharge - Discharge Referrals: DAVID PATEL, [Primary Care Provider] - Follow up as needed
[2020-02-27] MEDS ORDERED: ACETAMINOPHEN 325 MG TABLET PO ONE (18:38)
[2020-02-27 18:46] LABS: ABSOLUTE BASOPHILS # (AUTO) 0.1 10^3/uL (0.0-0.2); ABSOLUTE EOSINOPHILS # (AUTO) 1.3 10^3/uL (0.0-0.6); ABSOLUTE LYMPHOCYTES (AUTO) 2.4 10^3/uL (0.5-4.7); ABSOLUTE MONOCYTES (AUTO) 0.5 10^3/uL (0.1-1.4); ABSOLUTE NEUT (AUTO) 5.4 10^3/uL (1.7-8.2); BASOPHILS % (AUTO) 0.9 % (0-2); EOSINOPHILS % (AUTO) 13.7 % (0-6); HEMATOCRIT 44.7 % (36.0-47.0); HEMOGLOBIN 15.4 g/dL (12.0-15.5); LYMPHOCYTES % (AUTO) 24.3 % (13-45); MEAN CORPUSCULAR HEMOGLOBIN 32.4 pg (27.0-33.4); MEAN CORPUSCULAR HGB CONC 34.4 g/dL (32.0-36.0); MEAN CORPUSCULAR VOLUME 94 fl (80-97); MONOCYTES % (AUTO) 5.3 % (3-13); PLATELET COUNT 286 10^3/uL (150-450); RED BLOOD COUNT 4.74 10^6/uL (3.72-5.28); RED CELL DISTRIBUTION WIDTH 13.9 % (11.5-14.0); SEGMENTED NEUTROPHILS % (AUTO) 55.8 % (42-78); TOTAL CELLS COUNTED % (AUTO) 100 %; WHITE BLOOD COUNT 9.7 10^3/uL (4.0-10.5)
--- NOTE | 2020-02-27 18:50 | RADIOLOGY REPORT (SQ) ---
EXAM DESCRIPTION: CHEST 2 VIEWS IMAGES COMPLETED DATE/TIME: 02/27/2020 6:41 pm REASON FOR STUDY: SOB, chest pain COMPARISON: 01/23/2020 EXAM PARAMETERS: NUMBER OF VIEWS: two views TECHNIQUE: Digital Frontal and Lateral radiographic views of the chest acquired. RADIATION DOSE: NA LIMITATIONS: none FINDINGS: LUNGS AND PLEURA: No opacities, masses or pneumothorax. No pleural effusion. MEDIASTINUM AND HILAR STRUCTURES: No masses or contour abnormalities. HEART AND VASCULAR STRUCTURES: Heart normal size. No evidence for failure. BONES: No acute findings. HARDWARE: None in the chest. OTHER: No other significant finding. IMPRESSION: NO ACUTE RADIOGRAPHIC FINDING IN THE CHEST. TECHNICAL DOCUMENTATION: JOB ID: [id number] [employer]- All Rights Reserved Reading location - IP/workstation name: [email or web address]
[2020-02-27 18:54] LABS: INTERNATIONAL RATION (INR) 0.93; PROTHROMBIN TIME 12.7 SEC (11.4-15.4)
[2020-02-27 18:56] LABS: PARTIAL THROMBOPLASTIN TIME 25.3 SEC (23.5-35.8)
[2020-02-27 19:06] LABS: ALBUMIN 4.4 g/dL (3.5-5.0); ALKALINE PHOSPHATASE 96 U/L (38-126); ANION GAP 10 (5-19); ASPARTATE AMINO TRANSFERASE 28 U/L (14-36); BILIRUBIN,DIRECT 0.3 mg/dL (0.0-0.4); BILIRUBIN,TOTAL 0.5 mg/dL (0.2-1.3); BLOOD UREA NITROGEN 22 mg/dL (7-20); CALCIUM 9.9 mg/dL (8.4-10.2); CARBON DIOXIDE 23 mmol/L (22-30); CHLORIDE 108 mmol/L (98-107); GLUCOSE 120 mg/dL (75-110); POTASSIUM 4.5 mmol/L (3.6-5.0); TOTAL PROTEIN 7.2 g/dL (6.3-8.2)
[2020-02-27 19:16] LABS: NT PRO BNP 295 pg/mL (<125)
[2020-02-27 19:20] LABS: TROPONIN I < 0.012 ng/mL
--- NOTE | 2020-02-27 22:25 | ER Document Report ---
ED Respiratory Problem - General Chief Complaint: Chest Pressure Stated Complaint: DIFFICULTY BRATHING Time Seen by Provider: 02/27/20 18:11 Primary Care Provider: DAVID PATEL DO [Primary Care Provider] - Follow up as needed Notes: CHIEF COMPLAINT: Shortness of breath for 6 weeks HPI: 59-year-old female presenting to the emergency department complaining of intermittent shortness of breath episodes with coughing for 6 weeks. Patient states she was seen a month ago and had a negative Covid test, was placed on steroids and albuterol, initially got better but with the steroids right now got worse again. Patient was placed back on steroids again, had improvement in her symptoms and then once the steroids had finished about 3 days ago began having increasing shortness of breath and dyspnea with exertion no chest pain although she states that her chest does feel tight with the wheezing. No fevers. Has not been to her PCP in the last 3 days for reevaluation of symptoms. States she did use her MDI and her nebulizer today several times prior to coming into the emergency department. ROS: See HPI - all other systems were reviewed and are otherwise negative Constitutional: no fever Eyes: no drainage, no blurred vision ENT: no runny nose, no sore throat Cardiovascular: no chest pain Resp: + SOB, + cough GI: no vomiting, no diarrhea, no abdominal pain : no dysuria Integumentary: no rash Allergy: no hives Musculoskeletal: no extremity pain or swelling Neurological: no numbness/tingling, no weakness MEDICATIONS: I agree with the patient medications as charted by the RN. ALLERGIES: I agree with the allergies as charted by the RN. PAST MEDICAL HISTORY/PAST SURGICAL HISTORY: Reviewed and agree as charted by RN. SOCIAL HISTORY: Reviewed and agree as charted by RN. FAMILY HISTORY: No significant familial comorbid conditions directly related to patient complaint EXAM: Reviewed vital signs as charted by RN. CONSTITUTIONAL: Alert and oriented and responds appropriately to questions. Well-appearing; well-nourished HEAD: Normocephalic; atraumatic EYES: PERRL; Conjunctivae clear, sclerae non-icteric ENT: normal nose; no rhinorrhea; moist mucous membranes; pharynx without lesions noted, no uvula edema or deviation, no tonsillar hypertrophy, phonation normal NECK: Supple without meningismus; non-tender; no cervical lymphadenopathy, no masses CARD: RRR; no murmurs, no clicks, no rubs, no gallops; symmetric distal pulses RESP: Normal chest excursion without splinting or tachypnea; breath sounds clear and equal bilaterally; no wheezes, no rhonchi, no rales, pulse oximetry 95% on room air initially not hypoxic ABD/GI: Normal bowel sounds; non-distended; soft, non-tender, no rebound, no guarding; no palpable organomegaly or masses. BACK: The back appears normal and is non-tender to palpation, there is no CVA tenderness EXT: Normal ROM in all joints; non-tender to palpation; no cyanosis, no effusions, no edema SKIN: Normal color for age and race; warm; dry; good turgor; no acute lesions noted NEURO: Moves all extremities equally; Motor and sensory function intact PSYCH: The patient's mood and manner are appropriate. Grooming and personal hygiene are appropriate. MDM: Initial EKG sinus tachycardia with a ventricular rate of 116, left bundle branch block, WA 152, QT 356, QTc 495, abnormal EKG, interpreted by emergency department physician 59-year-old female who is been ill for approximately 6 weeks with upper respiratory symptoms presenting for increased shortness of breath over the last 3 days now after she finished steroids again. She has been afebrile. Initial work-up through the triage process showed that patient had some wheezing in triage, she feels better now after steroids and a breathing treatment. Her initial screening cardiac labs are all normal. Given the length of time of her symptoms and incomplete resolution will obtain CTA to evaluate for PE or subacute pneumonia. Her chest x-ray did not show evidence of pneumonia today. She does not become dyspneic or hypoxic while speaking with me in the room. I have lower suspicion for cardiac origin, will repeat her EKG and troponin. It seems that patient's symptoms are primarily respiratory in nature TRAVEL OUTSIDE OF THE [place] IN LAST 30 DAYS: No - Related Data Allergies/Adverse Reactions: ampicillin [Ampicillin] Allergy (Unknown, Verified 06/24/19 12:23) codeine [Codeine] Allergy (Unknown, Verified 06/24/19 12:23) Past Medical History - Social History Smoking Status: Never Smoker Chew tobacco use (# tins/day): No Frequency of alcohol use: Occasional Drug Abuse: None Family History: Reviewed & Not Pertinent, CAD - Father at age 45, [place] at 65, Hyperlipidemia, Hypertension, Other - Migraine Patient has homicidal ideation: No Pulmonary Medical History: Reports: Hx Bronchitis Neurological Medical History: Reports: Hx Migraine Renal/ Medical History: Reports: Hx Ectopic , Hx Ovarian Cysts Musculoskeletal Medical History: Reports Hx Musculoskeletal Trauma Past Surgical History: Reports: Hx Genitourinary Surgery - Bladder sling, Hx Gynecologic Surgery - Ectopic removal, Hx Hysterectomy, Hx Orthopedic Surgery - knee two meniscus repair, Hx Tubal Ligation, Hx Urinary Tract Surgery - Bladder sling - Immunizations Immunizations up to date: Yes Hx Diphtheria, Pertussis, Tetanus Vaccination: Yes Physical Exam - Vital signs Vitals: Temp Pulse Resp BP Pulse Ox 98.2 F 119 H 22 H 131/75 H 95 02/27/20 18:13 02/27/20 18:13 02/27/20 18:13 02/27/20 18:13 02/27/20 18:13 Course - Re-evaluation Re-evalutation: 02/27/20 23:55 Second EKG shows sinus rhythm with a left bundle branch block with a ventricular rate of 86 [place] 164 QT 424 QTC 508. Abnormal EKG but no other ectopy noted. Tachycardia has improved. Interpreted by emergency department physicians. Patient not dyspneic in the room at this time CTA of the chest did not show evidence of infiltrate suggesting pneumonia or pulmonary embolus. This was discussed at length with the patient we will keep her on a short course of Decadron will refer to pulmonology for further evaluation. We will also give patient referral to cardiology given her age and abnormalities on the EKG but I have low suspicion for ACS at this time given to negative screening troponins over time - Vital Signs Vital signs: Temp Pulse Resp BP Pulse Ox 98.2 F 95 13 131/69 H 95 02/27/20 18:13 02/27/20 19:30 02/27/20 22:22 02/27/20 22:22 02/27/20 22:22 - Laboratory Result Diagrams: 02/27/20 18:29 02/27/20 18:29 Laboratory results interpreted by me: 02/27/20 02/27/20 02/27/20 18:29 18:29 18:29 Eos % (Auto) 13.7 H Absolute Eos (auto) 1.3 H Chloride 108 H BUN 22 H Est GFR (MDRD) Non-Af 52 L Glucose 120 H NT-Pro-B Natriuret Pep 295 H Discharge - Discharge Clinical Impression: Dyspnea Qualifiers: Dyspnea type: other forms of dyspnea Qualified Code(s): R06.09 - Other forms of dyspnea Condition: Stable Disposition: HOME, SELF-CARE Additional Instructions: Continue to use the albuterol 2 puffs every 4 hours or 1 breathing treatment on nebulizer every 4 hours as needed for shortness of breath. Take the Decadron as prescribed. Follow-up with pulmonology and cardiology for further evaluation and treatment call for appointment Prescriptions: Dexamethasone [Decadron 4 Mg Tablet] 4 mg PO DAILY #7 tablet Referrals: DAVID PATEL DO [Primary Care Provider] - Follow up as needed JOSE FOSTER MD [ACTIVE PROVISIONAL STAFF] - Follow up as needed AMY FERNANDES MD [ACTIVE PROVISIONAL STAFF] - Follow up as needed
--- NOTE | 2020-02-27 23:41 | RADIOLOGY REPORT (SQ) ---
CT CHEST ANGIOGRAPHY WITHOUT THEN WITH IV CONTRAST HISTORY: Shortness of breath. COMPARISON: None. TECHNIQUE: CT angiogram of the chest with IV contrast. 3-D MIP images were obtained in coronal and sagittal reconstructions. This exam was performed according to our departmental dose-optimization program, which includes automated exposure control, adjustment of the mA and/or kV according to patient size and/or use of iterative reconstruction technique. FINDINGS: No filling defects are identified in the pulmonary trunk, main left and right pulmonary arteries, or the segmental branches. The thyroid gland is normal. No mediastinal or hilar adenopathy. The heart size is normal without pericardial effusion. The thoracic aorta is normal caliber. No consolidation, pleural effusion, or pneumothorax is identified. The visualized upper abdomen demonstrates no acute findings. No acute osseous findings are seen. IMPRESSION: No acute pulmonary embolism.
[2020-02-28 00:11] VITALS: BP 122/79
--- NOTE | 2020-02-28 16:02 | EKG REPORT ---
SEVERITY:- ABNORMAL ECG - SINUS RHYTHM LEFT BUNDLE BRANCH BLOCK : Confirmed by: Edil Florentino MD 28-Feb-2020 16:01:57
--- NOTE | 2020-02-28 16:04 | EKG REPORT ---
SEVERITY:- ABNORMAL ECG - SINUS TACHYCARDIA LEFT BUNDLE BRANCH BLOCK : Confirmed by: Edil Florentino MD 28-Feb-2020 16:04:00
== END 2020-02-28 00:12 | disposition home or self-care (01) ==
LOC: ER 17:38
DX: R06.09 Other forms of dyspnea (principal); R06.02 Shortness of breath; R05 Cough
CPT/HCPCS: 93005; 94640; 99285; 96374; 36415; 83735; 85025; 85610; 85730; 80053; 84484; 83880; 71046; 71275; 93010; J2930; J7613